=== PATIENT | female | born 1980 | race Caucasian/White ===

== ENCOUNTER 2020-06-16 18:32 | Emergency (ER) | payer OTHER, SELFPAY ==
[2020-06-16 18:51] VITALS: BP 149/96; PULSE 94; RESP 18; TEMP 36.2; O2SAT 100
--- NOTE | 2020-06-16 19:13 | ED.URI ---
HPI - URI/Sore Throat General Chief Complaint: Upper Respiratory Infection Stated Complaint: runny nose/poss fever Time Seen by Provider: 06/16/20 18:49 Source: patient and RN notes reviewed Mode of arrival: ambulatory Limitations: no limitations History of Present Illness HPI Narrative: Patient presents today complaining of a 2-day history of productive cough, congestion, rhinorrhea, sore throat. Denies ear pain, fever. History of COPD. Denies nausea, vomiting, diarrhea. She has been using her albuterol inhaler 4-5 times per day. She does not currently have a PCP. MD elicited complaint: cough Related Data Home Medications Medication Instructions Recorded Confirmed albuterol mcg INHALATION 06/16/20 Allergies Allergy/AdvReac Type Severity Reaction Status Date / Time No Known Allergies Allergy Verified 06/16/20 18:49 Review of Systems Review of Systems: Narrative: CONSTITUTIONAL: Denies body aches, fever, chills, or sweats. EYES: Denies visual changes, redness, or discharge. ENT: Denies otalgia.+ Congestion, rhinorrhea, sore throat CARDIOVASCULAR: Denies chest pain, palpitations, or edema. RESPIRATORY: Denies dyspnea. + Productive cough GASTROINTESTINAL: Denies abdominal pain, nausea, vomiting, or diarrhea. GENITOURINARY: Denies dysuria or hematuria. SKIN: Denies rash, itching, or wounds. MUSCULOSKELETAL: Denies back pain, joint pain, or myalgia. NEUROLOGIC: Denies headache, numbness, tingling, or weakness. PSYCH: Denies depression or anxiety. [facility] Past Medical History Medical History (Updated 06/16/20 @ 19:19 by Megan Pino, [facility], ) COPD (chronic obstructive pulmonary disease) Exam Narrative: Exam Narrative: GENERAL: Well-appearing, well-nourished, and in no acute distress. HEAD: Normocephalic, atraumatic. EYES: EOMI. No redness or drainage. Conjunctivae normal. ENT: Mucous membranes pink and moist. Nares clear. No rhinorrhea. TMs normal bilaterally. Throat normal. Uvula midline. NECK: Normal AROM. Supple. No lymphadenopathy. CHEST: No respiratory distress. Clear to auscultation. HEART: Regular rate and rhythm. No murmur appreciated. Normal peripheral pulses. EXTREMITIES: Normal range of motion. No edema. SKIN: Warm, dry, no rash. Capillary refill normal. Normal skin turgor. NEURO: No focal deficits. Alert and oriented x3. Gait steady. PSYCH: Normal affect. No signs of depression or anxiety. Course Vital Signs Vital signs: Vital Signs Temperature 97.1 F L 06/16/20 18:51 Pulse Rate 94 06/16/20 18:51 Respiratory Rate 18 06/16/20 18:51 Blood Pressure 149/96 H 06/16/20 18:51 Pulse Oximetry 100 06/16/20 18:51 Temperature 97.1 F L 06/16/20 18:51 Pulse Rate 94 06/16/20 18:51 Respiratory Rate 18 06/16/20 18:51 Blood Pressure 149/96 H 06/16/20 18:51 Pulse Oximetry 100 06/16/20 18:51 Reviewed. Pt has been instructed to follow up with her PCP regarding her elevated blood pressure today. MDM - URI/Sore Throat Differential Diagnosis Differential diagnosis: Likely upper respiratory infection, otitis media, viral infection, bronchitis and other (COPD exacerbation) Critical Care Time Critical Care Time Critical Care Time: No Discharge Plan Discharge Clinical Impression: Upper respiratory infection Qualifiers: URI type: unspecified URI Qualified Code(s): J06.9 - Acute upper respiratory infection, unspecified Patient Disposition: Home, Self-Care Condition: Stable Instructions: Upper Respiratory Infection (DC) Additional Instructions: Your symptoms are likely due to a viral illness, which is not treated with antibiotics. Virus symptoms can last for up to 10-14 days. Take Tylenol or ibuprofen for pain or fever. Use the albuterol inhaler as directed. Take the prednisone as prescribed. Take Mucinex during the day. Rest and stay hydrated. Follow up with your PCP in 7 days if symptoms are not improving, or sooner if symptoms are worsening.
== END 2020-06-16 19:26 | disposition home or self-care (01) ==
PROVIDERS: Emergency Provider Nurse Practitioner
DX: J06.9 Acute upper respiratory infection, unspecified (principal); J44.9 Chronic obstructive pulmonary disease, unspecified
CPT/HCPCS: 99213; G0463

== ENCOUNTER 2021-08-22 11:35 | Emergency (ER) | payer OTHER, SELFPAY ==
--- NOTE | ~2021-08-22 | XR_ITS ---
EXAMINATION: XR chest 2V DATE: 08/22/2021 11:53 INDICATION: Cough TECHNIQUE: PA and lateral views of the chest are obtained. COMPARISON: None available FINDINGS: The lungs are free of acute opacities. There is no pleural effusion or pneumothorax. The ca rdiomediastinal silhouette is normal. The visualized bones and soft tissues are unremarkable. Surgica l clips in the right upper quadrant are likely from prior cholecystectomy. IMPRESSION: 1. No acute cardiopulmonary abnormality. Reviewed, dictated and finalized at location A. [facility]
--- NOTE | 2021-08-22 11:38 | ED.URI ---
HPI - URI/Sore Throat General Chief Complaint: Upper Respiratory Infection Stated Complaint: cough and tight chest Time Seen by Provider: 08/22/21 11:38 Source: patient and RN notes reviewed History of Present Illness HPI Narrative: Patient is a 41-year-old female who presents the urgent care with complaints of cough and chest tightness. Patient states that she has a history of COPD and gets either bronchitis or pneumonia every year. Patient has not been Covid vaccinated and denies of any recent exposures. Patient denies of any fevers, increased shortness of breath, nausea or vomiting. Patient states that she has been using her albuterol inhaler and nebulizers. No other acute complaints. No acute distress noted. Patient aware of the plan of care. Some parts of this dictation were generated by voice recognition software and may contain typographical and/or grammatical inaccuracies. Related Data Home Medications Medication Instructions Recorded Confirmed albuterol sulfate 1.25 mg INHALATION Q4H PRN 08/22/21 08/22/21 Allergies Allergy/AdvReac Type Severity Reaction Status Date / Time No Known Allergies Allergy Verified 08/22/21 11:41 Review of Systems Review of Systems: CONSTITUTIONAL: Denies fever, chills, or sweats. EYES: Denies visual changes, redness, or discharge. ENT: Denies rhinorrhea, congestion, sore throat, or otalgia. CARDIOVASCULAR: Denies chest pain, palpitations, or edema. RESPIRATORY: Reports of productive cough with intermittent dyspnea GASTROINTESTINAL: Denies abdominal pain, nausea, vomiting, or diarrhea. GENITOURINARY: Denies dysuria or hematuria. SKIN: Denies rash or itching. MUSCULOSKELETAL: Denies back pain, joint pain, or myalgia. NEUROLOGIC: Denies headache, numbness, or weakness. All other systems reviewed are negative, except as documented in HPI. [facility] Past Medical History Medical History (Updated 06/17/20 @ 00:00 by Background Daemon) COPD (chronic obstructive pulmonary disease) Comments At the time of my signature, I reviewed and agree with the nursing past medical, surgical, social, and family history. There is no relevant family history pertinent to the patient complaint. Exam Narrative: GENERAL: This is a well-nourished, well-developed patient, in no apparent distress. HEAD: normocephalic, atraumatic. EYES: PERRL. Sclera clear/white. Vision is grossly intact. EARS: External ears normal, auditory canals clear and without drainage, TMs normal without perforation. Hearing grossly intact. NOSE: External nose normal with no obvious nasal discharge, nares without redness, no rhinorrhea. THROAT: Mucous membranes moist, posterior pharynx clear. Moderate postnasal drainage NECK: Neck supple CARDIOVASCULAR: Regular rate and rhythm without murmurs, gallops, or rubs. RESPIRATORY: Slightly diminished bibasilar without wheezes. Slight crackles throughout SKIN: warm, intact with no suspicious lesions or rash, good texture and turgor. NEURO: awake, alert, and oriented to person, place and time. There were no obvious focal neurologic abnormalities. EXTREMITIES: No clubbing, cyanosis, or edema. Course Vital Signs Vital signs: Vital Signs Temperature 98.4 F 08/22/21 11:41 Pulse Rate 89 08/22/21 11:41 Respiratory Rate 16 08/22/21 11:41 Blood Pressure 98/57 L 08/22/21 11:41 Pulse Oximetry 98 08/22/21 11:41 Temperature 98.4 F 08/22/21 11:41 Pulse Rate 89 08/22/21 11:41 Respiratory Rate 16 08/22/21 11:41 Blood Pressure 98/57 L 08/22/21 11:41 Pulse Oximetry 98 08/22/21 11:41 Reviewed MDM - URI/Sore Throat MDM Narrative Medical decision making narrative: Reviewed chest x-ray results with the patient. She is aware that chest x-ray was negative for pneumonia. Advised the patient to continue her nebulizer/albuterol as needed. Complete the steroid regimen as prescribed. May also use [id number] antihistamine daily for symptom relief. Use Tylenol/ibupro
[2021-08-22 11:41] VITALS: BP 98/57; PULSE 89; RESP 16; TEMP 36.9; O2SAT 98
== END 2021-08-22 12:10 | disposition home or self-care (01) ==
PROVIDERS: Emergency Provider Nurse Practitioner Family
DX: J40 Bronchitis, not specified as acute or chronic (principal); J44.9 Chronic obstructive pulmonary disease, unspecified
CPT/HCPCS: 71046; 99213; G0463